=== PATIENT | female | born 1940 | race Caucasian/White ===

== ENCOUNTER → 2016-06-07 | Outpatient (CLI) | payer MEDICARE ==
[~2016-06-07] MED LIST: IOHEXOL 350 MG/ML 100ML VIAL. IV ONE
[2016-06-07 13:32] LABS: GFR 54.3
--- NOTE | 2016-06-07 15:59 | RAD ---
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 CTA targeted to the abdominal aorta and the runoff vessels was performed. 75 cc of Omnipaque 350 was administered. Images were reformatted in the coronal and sagittal planes. Volume rendered image was also generated. No prior similar imaging is available. There are bilateral breast implants which are at least partially encapsulated. There is a moderately large hiatus hernia. There are a few lymph nodes in the left groin, likely incidental. The liver and spleen appear unremarkable. No pancreatic mass is seen. There is either a parapelvic cyst associated with the right kidney or a prominent extrarenal pelvis. An acute finding in the abdomen is not seen. No acute finding is apparent in the pelvis. No significant bony finding is seen in the lower extremities. There are degenerative changes involving the knees right greater than left. A significant soft tissues finding in either lower extremity is not seen. There is no significant plaquing seen associated with the abdominal aorta. There is no aneurysm. There is a main right renal artery with an additional accessory branch. There is a single main left renal artery. No significant stenosis is seen associated with the renal arteries. The celiac and SMA are widely patent. The aortic bifurcation is unremarkable as are the the common iliac arteries. Internal/external iliac arteries appear unremarkable. On the right the deep femoral branch appears unremarkable. The superficial femoral artery appears unremarkable without evidence of significant atherosclerotic disease or narrowing. The popliteal artery also appears unremarkable. There is three-vessel runoff to the ankle. On the left the deep femoral and superficial femoral arteries also appear normal without evidence of significant atherosclerotic disease or narrowing. The popliteal artery also appears normal. The trifurcation vessels proximally are patent. The peroneal artery is patent to the ankle. The anterior tibial and posterior tibial arteries taper and attenuate in the distal calf. IMPRESSION: No acute finding seen in the abdomen or pelvis. No significant arterial disease in the abdomen. In the lower extremities the major vessels are patent. There is three-vessel runoff on the right to the ankle. On the left the peroneal artery is patent to the ankle. The anterior tibial and posterior tibial arteries attenuate in the distal calf. Extrarenal pelvis on the right versus large parapelvic cyst PQRS Compliance Statement: One or more of the following individualized dose reduction techniques were utilized for this examination: 1. Automated exposure control 2. Adjustment of the mA and/or kV according to patient size 3. Use of iterative reconstruction technique
== END | disposition home or self-care (01) ==
LOC: CT 15:35
DX: I75.023 Atheroembolism of bilateral lower extremities (principal); N94.89 Other specified conditions associated with female genital organs and menstrual cycle; K44.9 Diaphragmatic hernia without obstruction or gangrene
CPT/HCPCS: 36415; 75635; 82565; 84520; Q9967